=== PATIENT | male | born 1985 | race Caucasian/White ===

== ENCOUNTER 2018-11-18 14:54 | Emergency (ER) | payer OTHER ==
--- NOTE | 2018-11-18 15:14 | ED ---
General Adult HPI - General Chief complaint: Extremity Problem,Nontraumatic Stated complaint: Poss Blood clot, Arm pain Time Seen by Provider: 11/18/18 14:59 Source: patient, RN notes reviewed Mode of arrival: ambulatory - History of Present Illness Initial comments: 33-year-old male presents to the emergency department for a chief complaint of left arm pain. Patient states that he noticed this yesterday. States that he is driving from [place] to [place] which is a [address] States that about an hour to have it or just his drive he noticed a lump in the distal me dial aspect of the left upper arm. States that he also started have some tingling in the left fourth and fifth digits. Patient denies any weakness of the left hand. Denies any difficulty moving the elbow or shoulder. Patient denies any history of blood clots but is concerned he may have a blood clot. Patient states he cannot find a lump right now but that it has been there. States it is tender to touch the area. Patient has no other complaints at this time including shortness of breath, chest pain, abdominal pain, nausea or vomiting, headache, or visual changes. Review of Systems ROS Statement: Those systems with pertinent positive or pertinent negative responses have been documented in the HPI. ROS Other: All systems not noted in ROS Statement are negative. Past Medical History Additional Past Medical History / Comment(s): Aortic stenosis History of Any Multi-Drug Resistant Organisms: None Reported Past Surgical History: Tonsillectomy Past Psychological History: No Psychological Hx Reported Smoking Status: Never smoker Past Alcohol Use History: None Reported Past Drug Use History: None Reported General Exam General appearance: alert, in no apparent distress Head exam: Present: atraumatic, normocephalic, normal inspection Eye exam: Present: normal appearance, PERRL, EOMI. Absent: scleral icterus, conjunctival injection, periorbital swelling ENT exam: Present: normal exam, mucous membranes moist Neck exam: Present: normal inspection, full ROM. Absent: tenderness, meningismus, lymphadenopathy Respiratory exam: Present: normal lung sounds bilaterally. Absent: respiratory distress, wheezes, rales, rhonchi, stridor Cardiovascular Exam: Present: regular rate, normal rhythm, normal heart sounds. Absent: systolic murmur, diastolic murmur, rubs, gallop, clicks Extremities exam: Present: normal inspection (No evidence for edema or "lump"), full ROM (Full range motion of the left upper extremity including flexion and extension of the wrist elbow and shoulder. Finger abduction and adduction and intact. Finger opposition intact. Sensation intact in the right upper extremity.), normal capillary refill (Capillary refill less than 2 seconds, radial pulse 2+ in the left upper extremity and equal in upper extremities bilaterally), other (No edema erythema ecchymosis present of the left upper extremity). Absent: tenderness, pedal edema, joint swelling, calf tenderness Course Vital Signs 11/18/18 11/18/18 11/18/18 14:59 17:00 18:00 Temperature 98.7 F 98.7 F 98.4 F Pulse Rate 66 60 64 Respiratory 16 18 18 Rate Blood Pressure 173/92 140/82 142/84 O2 Sat by Pulse 98 97 97 Oximetry Medical Decision Making - Medical Decision Making 33-year-old male presents to the emergency determine for chief complaint of left arm pain. Patient states he felt a lump in the distal aspect of his left upper arm. He states that since that time he has had numbness in his fourth and fifth digits as well. Patient is concerned he may has a blood clot as he has been driving from [place] to [place]. No pain in the calves. On exam patient has sensation intact in all digits of the left hand with full range of motion of the left upper extremity. Ultrasound negative for DVT. I do not see any evidence clinically for DVT such as edema or erythema. I do not feel a lump. Patient's complaints are likely musculoskeletal in nature as this all started when he was driving and the distribution of tingling is in the fourth and fifth digits. Patient will follow up with primary care in 1-2 days. He'll return here if he has any worsening symptoms. Discussed rice therapy. Disposition Clinical Impression: Paresthesia of finger Disposition: HOME SELF-CARE Condition: Good Additional Instructions: Please take Motrin and Tylenol for pain. Please ice the area. Follow-up with primary care in 1-2 days. Return if you have any worsening symptoms. Is patient prescribed a controlled substance at d/c from ED?: No Referrals: Nonstaff,Physician [Primary Care Provider] - 1-2 days Time of Disposition: 17:55
[2018-11-18 17:02] VITALS: RESP 18
--- NOTE | 2018-11-18 17:28 | US ---
EXAMINATION TYPE: US venous doppler duplex UE LT DATE OF EXAM: 11/18/2018 COMPARISON: NONE CLINICAL HISTORY: Pain. Left arm lump. SIDE PERFORMED: Left Left Arm: Negative for DVT No evidence of DVT. IMPRESSION: No evidence of deep venous thrombosis in the left arm.
[2018-11-18 18:08] VITALS: BP 142/84; PULSE 64; TEMP 98.4
== END 2018-11-18 18:10 | disposition home or self-care (01) ==
LOC: EC 14:54
DX: R20.2 Paresthesia of skin (principal); M79.602 Pain in left arm; R20.0 Anesthesia of skin
CPT/HCPCS: 99283